=== PATIENT | female | born 1980 | race Two or more races ===

== ENCOUNTER → 2024-07-26 | Outpatient (CLI) | payer BC, SELFPAY ==
--- NOTE | 2024-07-26 10:45 | XR_ITS ---
Examination: Breast ultrasound, unilateral, left complete Date and time of exam: July 26, 2024 1109 hours INDICATIONS: Palpable lump in the left axilla noticed beginning one year ago Technique: Real-time degroot scale ultrasonographic imaging performed left breast including all 4 quadrants as well as nipple retroareolar and axillary region. Findings: 3:00 intramammary lymph node 5 x 8 mm Multiple left axillary lymph nodes, the largest 2.9 x 1.1 cm IMPRESSION: BI-RADS Category 3: Probably benign findings One additional 6 month left breast axillary sonography follow-up needed to document stability of multiple left axillary lymph nodes
== END | disposition home or self-care (01) ==
LOC: CDIM 10:53
PROVIDERS: PCP Physician Assistant; Referring Provider Physician Assistant; Visit Provider Physician Assistant
DX: N63.32 Unspecified lump in axillary tail of the left breast (principal)
CPT/HCPCS: 76641